=== PATIENT | female | born 1990 | race Caucasian/White ===

== ENCOUNTER 2021-09-01 14:58 | Emergency (ER) | payer OTHER, MEDICAID, SELFPAY ==
[2021-09-01 15:14] VITALS: BP 137/79; PULSE 55; RESP 18; O2SAT 99
[2021-09-01 15:17] VITALS: BP 137/79; PULSE 56; RESP 16; TEMP 37.2; O2SAT 99; BMI 45.1
--- NOTE | 2021-09-01 16:44 | PC.NURSE ---
4 months of menses over last several hours multiple tampons, ongoing, hx of pcos but feeling worse. dizziness.
[2021-09-01 16:54] LABS: Add Manual Diff / Slide Review NO; Basophils Absolute Auto 100 /uL (0-100); Basophils Percent Auto 1.1 % (0-2); Eosinophils Absolute Auto 100 /uL (0-450); Eosinophils Percent Auto 1.9 % (2-4); Hematocrit 30.4 % (36-46); Hemoglobin 9.9 g/dL (12.0-16.0); Lymphocytes Absolute Auto 2500 /uL (1100-4500); Lymphocytes Percent Auto 35.1 % (25-40); Mean Corpuscular HGB Conc 32.5 % (30-36); Mean Corpuscular Hemoglobin 24.9 PG (26-34); Mean Corpuscular Volume 76.7 fL (80-100); Monocytes Absolute Auto 500 /uL (0-900); Monocytes Percent Auto 6.8 % (3-14); Neutrophils Absolute Auto 3900 /uL (1500-7000); Neutrophils Percent Auto 55.1 % (50-75); Platelet Count 318 X10^3/uL (150-400); Red Blood Cell Count 3.96 X10^6/uL (4.0-5.2); White Blood Cell Count 7.1 X10^3/uL (4.5-11.0)
[2021-09-01 17:16] LABS: BUN Creatinine Ratio 10.2 (6-22); Blood Urea Nitrogen 9 mg/dL (7-17); Calcium 9.6 mg/dL (8.4-10.2); Carbon Dioxide 27 mmol/L (22-32); Chloride 100 mmol/L (98-107); Estimated Glomerular Filt Rate > 60.0 mL/min (>60); Glucose 101 mg/dL (70-100); HEMOLYSIS < 15 (0-50); Potassium 4.1 mmol/L (3.4-5.1); Sodium 137 mmol/L (137-145)
[2021-09-01 17:30] LABS: Pregnancy Test Serum,Qual Negative (Negative)
--- NOTE | 2021-09-01 17:32 | DI.US.S_ITS ---
PROCEDURE: US PELVIC COMPLETE INDICATIONS: BLEEDING X 4 MONTHS TECHNIQUE: Real-time scanning was performed of the pelvic organs, with image documentation. Additional endovaginal scanning was necessary due to incomplete visualization of the adnexal and endometrial structures by transabdominal scanning. COMPARISON: None. FINDINGS: Uterus: Uterus is normal in size at 11.6 x 5.3 x 5.4 cm. The endometrium measures 13.5 mm in combined thickness. There is a 0.6 x 0.5 x 0.5 centimeter right posterior intramural uterine fibroid. There is a 0.8 x 0.4 x 0.9 centimeter left anterior intramural uterine fibroid. Ovaries: Right ovary measures 3.4 x 2.5 x 2.2 centimeters. Left ovary measures 5.3 x 2.3 x 2.3 centimeters. Ovaries are suboptimally visualized due to posterior location and large patient body habitus. Doppler evaluation of the ovaries could not be performed due to limitations of the study. Ovaries have gross normal morphologic appearance. Other: No pathologic free abdominal or pelvic fluid. IMPRESSION: 1. Suboptimal image quality. 2. Small uterine fibroids. 3. No sonographic abnormality identified in the endometrium. 4. Limited evaluation of the ovaries demonstrates no gross sonographic abnormality. Doppler evaluation for vascular flow to the ovaries could not be performed due to limitations of the study. Dictated by: Nora Koo MD, PhD on 09/01/2021 at 17:36 Approved by: Nora Koo MD, PhD on 09/01/2021 at 17:40
[2021-09-01] MEDS: SODIUM CHLORIDE 0.9% 1,000 ML 1000 ML IV (17:46)
[2021-09-01 17:47] VITALS: BP 134/79; PULSE 80; RESP 18; O2SAT 97
--- NOTE | 2021-09-01 18:05 | ED.FEMALEGU ---
HPI - Female Genitourinary <Zeferino Fletcher PA-C - Last Filed: 09/01/21 20:02> General Chief complaint: Urogenital-Female Stated complaint: Menstral Cycle for 4Mo. Anemic/Light Headed Time Seen by Provider: 09/01/21 15:57 Source: patient Mode of arrival: Ambulatory Limitations: no limitations History of Present Illness HPI Narrative: Patient is a 31-year-old female presenting to the emergency department today for abnormal vaginal bleeding. Patient states that she has experienced her menstrual cycle intermittently for 4 months, noting that on days that she reads she often goes through 1 the tampons daily. Of note, patient states that she has come to 30 tampon today. Additionally, the patient reports that her limbs feel heavy? and she has been cold throughout the day. Patient has a history of PCOS and an ultrasound back in 2019 when she experienced similar symptoms was inconclusive. The patient also notes that she has recently moved to the area and does not have a local OBGYN. Patient denies fever, cough, chest pain, shortness of breath, abdominal pain, nausea, vomiting, diarrhea, dysuria, back pain. No other concerns voiced at this time. Review of Systems <Zeferion Fletcher PA-C - Last Filed: 09/01/21 20:02> Constitutional Constitutional: Denies chills, Denies fever(s), Denies frequent falls, Denies lethargy and Denies weakness ENT Ears, Nose, Mouth, and Throat: Denies change in voice, Denies dizziness, Denies neck pain and Denies sore throat Cardiovascular Cardiovascular: Denies chest pain, Denies irregular heart rhythm, Denies lightheadedness, Denies palpitations, Denies dyspnea, Denies dyspnea on exertion and Denies orthopnea Respiratory Respiratory: Denies cough, Denies dyspnea, Denies dyspnea on exertion and Denies wheezing Gastrointestinal Gastrointestinal: Denies abdominal pain, Denies change in bowel habits, Denies diarrhea, Denies nausea and Denies vomiting Genitourinary Genitourinary: Reports abnormal menses, Reports abnormal vaginal bleeding, Denies dysuria, Denies genital pruritis and Denies pelvic pain Musculoskeletal Musculoskeletal: Denies neck pain and Denies numbness Neurologic Neurologic: Denies behavioral changes, Denies confusion, Denies dizziness, Denies frequent falls, Denies numbness and Denies weakness Psychiatric Psychiatric: Denies behavioral changes and Denies confusion Endocrine Endocrine: Denies palpitations Allergic/Immunologic Allergic/Immunologic: Denies wheezing Patient History <Zeferino Fletcher PA-C - Last Filed: 09/01/21 20:02> alcohol intake frequency: 0-2 drinks per day Substance Use Type: marijuana Exam <Zeferino Fletcher PA-C - Last Filed: 09/01/21 20:02> Narrative Exam Narrative: GENERAL: 31 year old patient appears stated age. Well-developed patient, in mild distress. Appears tired HEAD: Atraumatic. Normocephalic. EYES: Pupils equal round and reactive. Extraocular motions intact. No scleral icterus. No injection or drainage. ENT: Nose without bleeding, purulent drainage. Throat without erythema, tonsillar hypertrophy or exudate. Airway patent. NECK: Trachea midline. Non tender CARDIOVASCULAR: Regular rate and rhythm without murmurs, gallops, or rubs. RESPIRATORY: Clear to auscultation. Breath sounds equal bilaterally. No wheezes, rales, or rhonchi. GASTROINTESTINAL: Abdomen soft, non-tender, nondistended. EXTREMITIES: No edema or joint tenderness. BACK: Nontender without deformity or crepitance. No flank tenderness. NEURO: AOx3. SKIN: No rash or erythema of visible areas Initial Vital Signs Initial Vital Signs: Vital Signs Pulse Rate 55 L 09/01/21 15:14 Respiratory Rate 18 09/01/21 15:14 Blood Pressure 137/79 09/01/21 15:14 Pulse Oximetry 99 09/01/21 15:14 <Antwan Segura DO - Last Filed: 09/02/21 07:18> Initial Vital Signs Initial Vital Signs: Vital Signs Pulse Rate 55 L 09/01/21 15:14 Respiratory Rate 18 09/01/21 15:14 Blood Pressure 137/79 09/01/21 15:14 Pulse Oximetry 99 09/01/21 15:14 Course <Zeferino Fletcher PA-C - Last Filed: 09/01/21 20:02> Course Course Narrative: Patient is a 31-year-old female presenting to the emergency department today for abnormal vaginal bleeding. Orders Ordered: Discontinued Medications Sodium Chloride (Normal Saline 0.9%) 1,000 mls @ 1,000 mls/hr IV BOLUS ONE Stop: 09/01/21 18:27 Last Infusion: 09/01/21 18:27 Dose: 0 mls/hr Documented by: Admin: 09/01/21 17:46 Dose: 1,000 mls/hr Documented by: RAFAEL Vital Signs Vital signs: Vital Signs - 8 hr 09/01/21 15:14 09/01/21 15:17 09/01/21 17:47 Temperature 98.9 F Pulse Rate 55 L 56 L 80 Respiratory Rate 18 16 18 Blood Pressure 137/79 137/79 134/79 Pulse Oximetry 99 99 97 09/01/21 18:47 09/01/21 19:36 Temperature Pulse Rate 61 59 L Respiratory Rate 18 Blood Pressure 123/76 140/80 Pulse Oximetry 98 99 <Antwan Segura DO - Last Filed: 09/02/21 07:18> Orders Ordered: Discontinued Medications Sodium Chloride (Normal Saline 0.9%) 1,000 mls @ 1,000 mls/hr IV BOLUS ONE Stop: 09/01/21 18:27 Last Infusion: 09/01/21 18:27 Dose: 0 mls/hr Documented by: Admin: 09/01/21 17:46 Dose: 1,000 mls/hr Documented by: RAFAEL Vital Signs Vital signs: Vital Signs - 8 hr 09/01/21 15:14 09/01/21 15:17 09/01/21 17:47 Temperature 98.9 F Pulse Rate 55 L 56 L 80 Respiratory Rate 18 16 18 Blood Pressure 137/79 137/79 134/79 Pulse Oximetry 99 99 97 09/01/21 18:47 09/01/21 19:36 Temperature Pulse Rate 61 59 L Respiratory Rate 18 Blood Pressure 123/76 140/80 Pulse Oximetry 98 99 MDM - Female Genitourinary <Zeferino Fletcher PA-C - Last Filed: 09/01/21 20:02> Lab Data Result diagrams: 09/01/21 16:30 09/01/21 16:30 Labs: Lab Results 09/01/21 09/01/21 09/01/21 Range/Units 16:30 16:30 16:30 WBC 7.1 (4.5-11.0) X10^3/uL RBC 3.96 L (4.0-5.2) X10^6/uL Hgb 9.9 L (12.0-16.0) g/dL Hct 30.4 L (36-46) % MCV 76.7 L (80-100) fL MCH 24.9 L (26-34) PG MCHC 32.5 (30-36) % RDW 15.0 H (11.6-14.8) % Plt Count 318 (150-400) X10^3/uL Neut % (Auto) 55.1 (50-75) % Lymph % (Auto) 35.1 (25-40) % [place] % (Auto) 6.8 (3-14) % Eos % (Auto) 1.9 L (2-4) % Baso % (Auto) 1.1 (0-2) % Neut # (Auto) 3900 (4230-1902) /uL Lymph # (Auto) 2500 (5715-8102) /uL [place] # (Auto) 500 (0-900) /uL Eos # (Auto) 100 (0-450) /uL Baso # (Auto) 100 (0-100) /uL Sodium 137 (137-145) mmol/L Potassium 4.1 (3.4-5.1) mmol/L Chloride 100 (98-107) mmol/L Carbon Dioxide 27 (22-32) mmol/L BUN 9 (7-17) mg/dL Creatinine 0.88 (0.52-1.04) mg/dL Estimated GFR > 60.0 (>60) mL/min BUN/Creatinine Ratio 10.2 (6-22) Glucose 101 H (70-100) mg/dL Calcium 9.6 (8.4-10.2) mg/dL Serum , Qual Negative (Negative) Urine RBC (0-5/HPF) Urine WBC (0-5/HPF) Ur Squamous Epith Cells (0-5/HPF) Urine Bacteria (None) Ur Culture Indicated? 09/01/21 Range/Units 18:06 WBC (4.5-11.0) X10^3/uL RBC (4.0-5.2) X10^6/uL Hgb (12.0-16.0) g/dL Hct (36-46) % MCV (80-100) fL MCH (26-34) PG MCHC (30-36) % RDW (11.6-14.8) % Plt Count (150-400) X10^3/uL Neut % (Auto) (50-75) % Lymph % (Auto) (25-40) % [place] % (Auto) (3-14) % Eos % (Auto) (2-4) % Baso % (Auto) (0-2) % Neut # (Auto) (7217-7568) /uL Lymph # (Auto) (0050-3260) /uL [place] # (Auto) (0-900) /uL Eos # (Auto) (0-450) /uL Baso # (Auto) (0-100) /uL Sodium (137-145) mmol/L Potassium (3.4-5.1) mmol/L Chloride (98-107) mmol/L Carbon Dioxide (22-32) mmol/L BUN (7-17) mg/dL Creatinine (0.52-1.04) mg/dL Estimated GFR (>60) mL/min BUN/Creatinine Ratio (6-22) Glucose (70-100) mg/dL Calcium (8.4-10.2) mg/dL Serum , Qual (Negative) Urine RBC >100/hpf H (0-5/HPF) Urine WBC 0-1/hpf (0-5/HPF) Ur Squamous Epith Cells 1-5 /hpf (0-5/HPF) Urine Bacteria None seen (None) Ur Culture Indicated? Cult not indicated Imaging Data Pelvic US: Radiologist's Impression: PROCEDURE: US PELVIC COMPLETE INDICATIONS: BLEEDING X 4 MONTHS TECHNIQUE: Real-time scanning was performed of the pelvic organs, with image documentation. Additional endovaginal scanning was necessary due to incomplete visualization of the adnexal and endometrial structures by transabdominal scanning. COMPARISON: None. FINDINGS: Uterus: Uterus is normal in size at 11.6 x 5.3 x 5.4 cm. The endometrium measures 13.5 mm in combined thickness. There is a 0.6 x 0.5 x 0.5 centimeter right posterior intramural uterine fibroid. There is a 0.8 x 0.4 x 0.9 centimeter left anterior intramural uterine fibroid. Ovaries: Right ovary measures 3.4 x 2.5 x 2.2 centimeters. Left ovary measures 5.3 x 2.3 x 2.3 centimeters. Ovaries are suboptimally visualized due to posterior location and large patient body habitus. Doppler evaluation of the ovaries could not be performed due to limitations of the study. Ovaries have gross normal morphologic appearance. Other: No pathologic free abdominal or pelvic fluid. IMPRESSION: 1. Suboptimal image quality. 2. Small uterine fibroids. 3. No sonographic abnormality identified in the endometrium. 4. Limited evaluation of the ovaries demonstrates no gross sonographic abnormality. Doppler evaluation for vascular flow to the ovaries could not be performed due to limitations of the study. Dictated by: Nora Koo MD, PhD on 09/01/2021 at 17:36 Approved by: Nora Koo MD, PhD on 09/01/2021 at 17:40 [facility] Narrative Medical decision making narrative: Patient is a 31-year-old female presenting to the emergency department today for abnormal vaginal bleeding. To consider uterine polyps, adenomyosis, leiomyoma. 1 L bolus of normal saline administered. Pelvic ultrasound ordered. Patient states that she is feeling significantly better following normal saline administration. Complete pelvic ultrasound showed small uterine fibroids. Discussed with patient the results of her pelvic ultrasound and urged the importance following up with OBGYN. Instructed the patient to return to the emergency department if she starts to feel extremely lightheaded or if she is bleeding through a tampon per hour. Strict return precautions discussed with the patient prior to discharge. <Antwan Segura, DO - Last Filed: 09/02/21 07:18> Lab Data Labs: Lab Results 09/01/21 09/01/21 09/01/21 Range/Units 16:30 16:30 16:30 WBC 7.1 (4.5-11.0) X10^3/uL RBC 3.96 L (4.0-5.2) X10^6/uL Hgb 9.9 L (12.0-16.0) g/dL Hct 30.4 L (36-46) % MCV 76.7 L (80-100) fL MCH 24.9 L (26-34) PG MCHC 32.5 (30-36) % RDW 15.0 H (11.6-14.8) % Plt Count 318 (150-400) X10^3/uL Neut % (Auto) 55.1 (50-75) % Lymph % (Auto) 35.1 (25-40) % [place] % (Auto) 6.8 (3-14) % Eos % (Auto) 1.9 L (2-4) % Baso % (Auto) 1.1 (0-2) % Neut # (Auto) 3900 (6997-2577) /uL Lymph # (Auto) 2500 (4661-5045) /uL [place] # (Auto) 500 (0-900) /uL Eos # (Auto) 100 (0-450) /uL Baso # (Auto) 100 (0-100) /uL Sodium 137 (137-145) mmol/L Potassium 4.1 (3.4-5.1) mmol/L Chloride 100 (98-107) mmol/L Carbon Dioxide 27 (22-32) mmol/L BUN 9 (7-17) mg/dL Creatinine 0.88 (0.52-1.04) mg/dL Estimated GFR > 60.0 (>60) mL/min BUN/Creatinine Ratio 10.2 (6-22) Glucose 101 H (70-100) mg/dL Calcium 9.6 (8.4-10.2) mg/dL Serum , Qual Negative (Negative) Urine RBC (0-5/HPF) Urine WBC (0-5/HPF) Ur Squamous Epith Cells (0-5/HPF) Urine Bacteria (None) Ur Culture Indicated? 09/01/21 Range/Units 18:06 WBC (4.5-11.0) X10^3/uL RBC (4.0-5.2) X10^6/uL Hgb (12.0-16.0) g/dL Hct (36-46) % MCV (80-100) fL MCH (26-34) PG MCHC (30-36) % RDW (11.6-14.8) % Plt Count (150-400) X10^3/uL Neut % (Auto) (50-75) % Lymph % (Auto) (25-40) % [place] % (Auto) (3-14) % Eos % (Auto) (2-4) % Baso % (Auto) (0-2) % Neut # (Auto) (7532-7821) /uL Lymph # (Auto) (3117-5032) /uL [place] # (Auto) (0-900) /uL Eos # (Auto) (0-450) /uL Baso # (Auto) (0-100) /uL Sodium (137-145) mmol/L Potassium (3.4-5.1) mmol/L Chloride (98-107) mmol/L Carbon Dioxide (22-32) mmol/L BUN (7-17) mg/dL Creatinine (0.52-1.04) mg/dL Estimated GFR (>60) mL/min BUN/Creatinine Ratio (6-22) Glucose (70-100) mg/dL Calcium (8.4-10.2) mg/dL Serum , Qual (Negative) Urine RBC >100/hpf H (0-5/HPF) Urine WBC 0-1/hpf (0-5/HPF) Ur Squamous Epith Cells 1-5 /hpf (0-5/HPF) Urine Bacteria None seen (None) Ur Culture Indicated? Cult not indicated Discharge Plan Departure Patient Disposition: Home Clinical Impression: Abnormal uterine bleeding Fibroid, uterine Qualifiers: Uterine leiomyoma location: unspecified location Qualified Code(s): D25.9 - Leiomyoma of uterus, unspecified Instructions: DI for Uterine Fibroids, DI for Abnormal Uterine Bleeding Activity Restrictions/Additional Instructions: *You have been diagnosed with uterine fibroids, abnormal uterine bleeding *What to do: *Please continue to take your regular medications as directed. [ ] New medication prescriptions sent to your pharmacy: [ ] [ ] New medication written as a paper prescription [X] No new medications given *Please follow up with your primary care provider in 2-3 days, call for an appointment. Let them know you were seen in the Emergency Department and that we ask that you be seen in follow up. We will electronically transmit a record of today's note if your PCP is in our system. Recommended beginning oral contraceptives. *Please contact the office of Dr. Frederick Manuel (OBGYN) at and schedule the earliest available appointment. *If you do not have a primary care provider please contact the [facility] Resource line at [phone]. They will ask some questions about your medical history and help get you set up with a doctor in the community. *Return to Emergency Department if you should have any new, worsening or concerning symptoms, such as [fever greater than 101 F, shaking chills, worsening pain, persistent vomiting or other bothersome symptoms] Referrals: Frederick Manuel MD [Physician] - As soon as possible <Antwan Segura DO - Last Filed: 09/02/21 07:18> Cosign ED Attending Cosignature Attestation: Dr Segura Co-Sign Statement: I was available for consultation during this patient's emergency department visit. This chart is signed by myself for administrative purposes only. I did not have direct contact with this patient during this visit. They were seen independently by the APC.
[2021-09-01 18:21] LABS: Bacteria Urine None Seen; Culture Indicated Urine Cult Not Indicated; RBC Urine >100/HPF (0-5/HPF); Squamous Epithelial Cell Urine 1-5 /HPF (0-5/HPF); WBC Urine 0-1/HPF (0-5/HPF)
[2021-09-01 18:47] VITALS: BP 123/76; PULSE 61; RESP 18; O2SAT 98
[2021-09-01 19:36] VITALS: BP 140/80; PULSE 59; O2SAT 99
== END 2021-09-01 19:44 | disposition home or self-care (01) ==
PROVIDERS: Emergency Medicine; Emergency Provider Physician Assistant
DX: N93.9 Abnormal uterine and vaginal bleeding, unspecified (principal); D25.9 Leiomyoma of uterus, unspecified
CPT/HCPCS: 36415; 76830; 76856; 80048; 81015; 84703; 85025; 96360; 99284